=== PATIENT | male | born 1955 ===

== ENCOUNTER 2022-06-15 09:00 | Inpatient (IN) ==
[2022-10-26] MEDS ORDERED: Tranexamic Acid 1,000 MG/10 ML 1,000 MG in NS 0.9% 50 ML 50 ML IV SCH
[2022-10-26] MEDS ORDERED: Lactated Ringers 1000 ml BAG 1,000 ML IV SCH ×2 (06:00→09:00)
[2022-10-26] MEDS ORDERED: Buffered Lidocaine 1% SYRIN 1 ml INTRADERM ONE (06:00)
[2022-10-26] MEDS ORDERED: ceFAZolin 2 GM in NS PREMIX 2 GM/100 ML BAG IVPB ONE (07:41)
[2022-10-26] MEDS ORDERED: Lidocaine 2% PF 5 ML VIAL ONE (07:49)
[2022-10-26] MEDS ORDERED: Ondansetron 4 mg VIAL 2 MG/ML 2 ml VIAL ONE (07:49)
[2022-10-26] MEDS ORDERED: Acetaminophen IV 1 GM/100ML 1,000 MG/100 ML BAG IV ONE (07:49)
[2022-10-26] MEDS ORDERED: Bupivacaine 0.5% PF 10 ML SDV VIAL INJ ONE (07:49)
[2022-10-26] MEDS ORDERED: Dexamethasone IV 4 MG/ML VIAL 1 ml VIAL ONE (07:49)
[2022-10-26] MEDS ORDERED: Propofol 10 MG/ML 20 ML BTL ONE ×2 (07:49→10:55)
[2022-10-26] MEDS ORDERED: Midazolam 2 mg/2 ml VIAL 1 mg/ml 2 ml VIAL (2 mg) ONE ×2 (07:51→08:21)
[2022-10-26] MEDS ORDERED: fentaNYL 100 mcg/2 ml 50 MCG/ML VIAL ONE (07:52)
[2022-10-26] MEDS ORDERED: HYDROmorphone 1 MG/1 ML SYRINGE IV PRN (07:59)
[2022-10-26] MEDS ORDERED: Naloxone 0.4 mg VIAL 0.4 mg/ml 1 ml VIAL IV PRN (07:59)
[2022-10-26] MEDS ORDERED: ROPIVACAINE 5 MG/ML 30 ML BTL (0.5%) ONE ×2 (08:29→09:18)
[2022-10-26] MEDS ORDERED: Morphine 2 MG/ML SYRINGE IV PRN (08:55)
[2022-10-26] MEDS ORDERED: Magnesium Hydroxide LIQ 30 ML UDC PO PRN (08:55)
[2022-10-26] MEDS ORDERED: Ondansetron 4 mg VIAL 2 MG/ML 2 ml VIAL IV PRN (08:55)
[2022-10-26] MEDS ORDERED: Lactulose 30 ml UDC PO PRN (08:55)
[2022-10-26] MEDS ORDERED: Ondansetron ODT 4 mg TAB 4 MG TAB PO PRN (08:55)
[2022-10-26] MEDS ORDERED: Vitamin THERAPEUTIC TAB PO SCH (09:00)
[2022-10-26] MEDS ORDERED: Magnesium Hydroxide LIQ 30 ML UDC PO SCH (09:00)
[2022-10-26] MEDS ORDERED: Glycopyrrolate IV 0.2 MG/ML 1 ML VIAL ONE (10:25)
[2022-10-26] MEDS ORDERED: ceFAZolin 1 GM ADVAN 1 GM in NS 0.9% 50 ML 50 ML IVPB SCH (17:00)
[2022-10-26 18:26] VITALS: BP 107/59
== END 2022-10-26 17:15 | disposition home or self-care (01) | DRG 470 ==
LOC: AA 10-26 06:54 → SSU 10-26 12:56
PROVIDERS: ADMIT Orthopaedic Surgery Adult Reconstructive Orthopaedic Surgery; ATTEND Orthopaedic Surgery Adult Reconstructive Orthopaedic Surgery